=== PATIENT | male | born 1960 | race Caucasian/White ===

== ENCOUNTER 2024-05-21 18:19 | Emergency (ER) | payer OTHER, SELFPAY ==
[2024-05-21 18:35] VITALS: BP 115/64; PULSE 69; RESP 18; TEMP 36.4; O2SAT 99; BMI 32.1
--- NOTE | 2024-05-21 18:51 | XRR_ITS ---
PROCEDURE INFORMATION: Exam: XR Left Foot Exam date and time: 05/21/2024 7:28 PM Age: 63 years old Clinical indication: Ankle and foot; Left; Patient HX: Lt foot/ankle pain post fall TECHNIQUE: Imaging protocol: Radiologic exam of the left foot. Views: 3 or more views. COMPARISON: CR XR ankle LT min 3V* [id number] 05/21/2024 7:28 PM FINDINGS: Bones/joints: No acute fracture or dislocation within the foot. Distal tibia and fibula fractures better assessed on concurrent ankle radiographs, reported separately. Mild degenerative changes through the midfoot. Small plantar calcaneal enthesophyte. Soft tissues: Normal. XR/XR foot LT min 3V* [id number] IMPRESSION: No definite acute osseous findings within the foot. Please see separate ankle radiograph report.
--- NOTE | 2024-05-21 18:51 | XRR_ITS ---
PROCEDURE INFORMATION: Exam: XR Left Ankle Exam date and time: 05/21/2024 7:28 PM Age: 63 years old Clinical indication: Ankle and foot; Left; Patient HX: Lt foot/ankle pain post fall TECHNIQUE: Imaging protocol: Radiologic exam of the left ankle. Views: 3 or more views. COMPARISON: CR (LOW EXM, ) 05/21/2024 7:28 PM FINDINGS: Bones/joints: Mildly displaced, comminuted fracture of the distal fibular metadiaphysis with mild widening of the lateral clear space. Intra-articular extension into the talofibular joint. Nondisplaced fracture of the distal tibial along the posterior malleolus. Soft tissues: Moderate soft tissue swelling along the lateral ankle. XR/XR ankle LT min 3V* [id number] IMPRESSION: 1. Mildly displaced, comminuted fracture of the distal fibula with intra-articular extension. 2. Nondisplaced distal tibia fracture.
[2024-05-21] MEDS: ketorolac 60 mg/2 mL INJ 30 MG IVP (19:51)
--- NOTE | 2024-05-21 20:07 | XRR_ITS ---
PROCEDURE INFORMATION: Exam: XR Left Knee Exam date and time: 05/21/2024 8:37 PM Age: 63 years old Clinical indication: Injury or trauma; Patient HX: Lt knee pain post fall; Lt ankle FX TECHNIQUE: Imaging protocol: Radiologic exam of the left knee. Views: 3 views. COMPARISON: CR (LOW EXM, ) 05/21/2024 7:28 PM FINDINGS: Bones/joints: Normal. Soft tissues: Normal. XR/XR knee LT 3V* [id number] IMPRESSION: No acute findings.
[2024-05-21 21:40] VITALS: BP 127/71; PULSE 64; RESP 16; O2SAT 95
--- NOTE | 2024-05-21 23:11 | W.ED.EXTPRO ---
Documented by User: MARKELL Shaikh 05/21/24 23:21 HPI - Extremity Problem General: Chief complaint: Extremity Injury, Lower Stated complaint: fall Time Seen by Provider: 05/21/24 18:44 Source: patient Mode of arrival: EMS Limitations: no limitations History of Present Illness: Patient is a 63-year-old male brought into the emergency department by ambulance due to left leg injury prior to arrival. He reportedly was walking down steps when he fell down the bottom 3, injuring his left leg in the process. He did noted to be an inversion type injury, and states that it appeared out of place and he subsequently put it back in place prior to presenting to the emergency department. Ambulance also did place a temporary splint on. He is denying pain medications at this time, though is reporting a pain 9/10. No prior injuries or surgeries to the foot. No distal neurovascular deficits reported. There is quite a bit of swelling to the medial and lateral malleoli on examination. MD Complaint: joint swelling and joint pain Onset (ago): minute(s) Pain Consistency: constant Location: left and lower extremity Severity scale (1-10): 9 Radiation: proximal Exacerbating factors: range of motion and palpation Associated symptoms: Deny chest pain, fever(s) or rash Context: other (Fell downstairs) Related Data Previous Rx's Medication Instructions Recorded hydrocodone 7.5 mg-acetaminophen 1 tab PO Q8H PRN pain #15 tabs 05/21/24 325 mg tablet Allergies Allergy/AdvReac Type Severity Reaction Status Date / Time Penicillins Allergy Unknown Verified 05/21/24 18:41 Review of Systems General: Reports: 10 or more systems reviewed and unremarkable except in HPI and below Const: Reports: other (Fall); Denies: fever(s), chills or fatigue Eyes: Denies: change in vision ENMT: Denies: throat pain, ear or mastoid pain or nasal discharge Card: Denies: chest pain, palpitations, swelling of feet/ankles or lightheadedness Resp: Denies: dyspnea, productive cough or wheezing GI: Denies: abdominal pain, nausea, vomiting, diarrhea or constipation : Denies: flank pain, difficulty urinating, dysuria or urinary frequency Musc: Reports: extremity pain (Left lower extremity) and joint pain (Left ankle); Denies: neck pain or back pain Skin/Breast: Denies: rash Neuro: Denies: headache(s), numbness in extremities or weakness in extremities Physical Exam Const: COMMON NORMALS: no acute distress and no limitations GENERAL APPEARANCE: cooperative, comfortable and well developed ORIENTATION/CONSCIOUSNESS: Yes awake HENMT: COMMON NORMALS: normocephalic, atraumatic and hearing grossly normal bilaterally HEAD & SCALP: normocephalic and atraumatic Eye: COMMON NORMALS: Equal, round and reactive pupils present, EOMs intact bilaterally and conjunctivae normal CONJUNCTIVA: Yes conjunctivae normal PUPIL: Yes Equal, round and reactive pupils present Neck/C-Spine: COMMON NORMALS: full ROM, supple and no JVD Resp: COMMON NORMALS: normal respiratory effort, No retractions, No use of accessory muscles and clear to auscultation bilaterally AUSCULTATION: clear to auscultation bilaterally Cardio: COMMON NORMALS: no JVD, regular rate, regular rhythm, No clicks present (Cardio), No murmurs present (Cardio) and No rub (Cardio) RATE: regular rate RHYTHM: regular rhythm Extremity: NARRATIVE EXTREMITY EXAM: There is a moderate amount of swelling to the left lateral malleolus. Also swelling noted to the left medial malleolus. With these areas are tender to palpation, lateral worse than medial. Some mild bruising noted just inferior to the swelling. Distal neurovascular status intact with palpable dorsalis pedis and posterior tibial pulses. Knee is nontender to palpation. Calcaneus nontender to palpation. Skin: COMMON NORMALS: no rashes or lesions noted GENERAL SKIN EXAM: no rashes or lesions noted Course Vital Signs: Vital signs: Vital Signs Temperature 97.5 F L 05/21/24 18:35 Pulse Rate 64 05/21/24 21:40 Respiratory Rate 16 05/21/24 21:40 Blood Pressure 127/71 05/21/24 21:40 Pulse Oximetry 95 05/21/24 21:40 MDM - Extremity (Nontraumatic) Medical Decision Making Patient brought in by ambulance for a left lower extremity injury after he fell down some stairs. Patient noted to EMS that he popped his foot back into place. He did arrive with quite a bit of swelling to the left lower extremity and was pretty diffusely tender to palpation of the left ankle joint. Distal neurovascular status did seem intact as he had palpable dorsalis pedis and posterior tibial pulses and did not endorse any focal sensory deficit distally. Vital stable. X-ray of the left foot was negative, however left ankle x-ray showed a very minimally displaced comminuted fracture of the distal left fibula, also a nondisplaced fracture of the distal left tibia. Subsequently, an x-ray of the knee was obtained, and while patient stated he was not having any pain, it did appear to be a minor fracture of the left proximal fibula. Because of this he will be placed in a long-leg splint with stirrup and refer to podiatry/orthopedics for further evaluation. He is provided pain medications at home and other recovery precautions. In addition return precautions were given prior to discharge. Dr. Coleman made aware of this patient's case and current findings. In addition pictures of the fracture was sent to Dr. Friend who agrees that this can follow-up in the office. Lab Data Radiology Impressions Ankle X-Ray 05/21/24 18:51 IMPRESSION: 1. Mildly displaced, comminuted fracture of the distal fibula with intra-articular extension. 2. Nondisplaced distal tibia fracture. Foot X-Ray 05/21/24 18:51 IMPRESSION: No definite acute osseous findings within the foot. Please see separate ankle radiograph report. Knee X-Ray 05/21/24 20:07 IMPRESSION: No acute findings. All radiology interpretation(s) finalized by discharge Discharge Plan Discharge Patient Disposition: Home Clinical Impression: Closed fracture of proximal end of left fibula Qualifiers: Encounter type: initial encounter Fracture morphology: unspecified fracture morphology Qualified Code(s): S82.832A - Other fracture of upper and lower end of left fibula, initial encounter for closed fracture Closed fracture of distal end of left fibula Qualifiers: Encounter type: initial encounter Fracture morphology: unspecified fracture morphology Qualified Code(s): S82.832A - Other fracture of upper and lower end of left fibula, initial encounter for closed fracture Closed fracture of left distal tibia Qualifiers: Encounter type: initial encounter Fracture morphology: unspecified fracture morphology Qualified Code(s): S82.302A - Unspecified fracture of lower end of left tibia, initial encounter for closed fracture Condition: Stable Prescriptions: New hydrocodone-acetaminophen 7.5-325 mg tablet 1 tab PO Q8H PRN (Reason: pain) Qty: 15 0RF Discharge Orders: Discharge ED (Routine); Ordered 05/21/24 Ordered By: Chencho Funes Discharge Diet: Usual diet Discharge Activity: Use walker/crutches as instructed Patient Instructions: Ankle Fracture (ED), Leg Fracture (ED) Activity Restrictions/Additional Instructions: Nonweightbearing as discussed. Follow-up with orthopedics next week. Crutches provided. Tylenol and ibuprofen, rest and recovery and you may elevate the extremity for relief of swelling. Please return if you develop any loss of feeling in your foot, severe increase in pain, or other concerning symptoms. 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 Documented by User: Benny Ojeda DO 05/22/24 07:10 HPI - Extremity Problem General: Chief complaint: Extremity Injury, Lower Stated complaint: fall Time Seen by Provider: 05/21/24 18:44 Related Data Previous Rx's Medication Instructions Recorded hydrocodone 7.5 mg-acetaminophen 1 tab PO Q8H PRN pain #15 tabs 05/21/24 325 mg tablet Allergies Allergy/AdvReac Type Severity Reaction Status Date / Time Penicillins Allergy Unknown Verified 05/21/24 18:41 Course Vital Signs: Vital signs: Vital Signs Temperature 97.5 F L 05/21/24 18:35 Pulse Rate 64 05/21/24 21:40 Respiratory Rate 16 05/21/24 21:40 Blood Pressure 127/71 05/21/24 21:40 Pulse Oximetry 95 05/21/24 21:40 MDM - Extremity (Nontraumatic) Medical Decision Making Patient brought in by ambulance for a left lower extremity injury after he fell down some stairs. Patient noted to EMS that he popped his foot back into place. He did arrive with quite a bit of swelling to the left lower extremity and was pretty diffusely tender to palpation of the left ankle joint. Distal neurovascular status did seem intact as he had palpable dorsalis pedis and posterior tibial pulses and did not endorse any focal sensory deficit distally. Vital stable. X-ray of the left foot was negative, however left ankle x-ray showed a very minimally displaced comminuted fracture of the distal left fibula, also a nondisplaced fracture of the distal left tibia. Subsequently, an x-ray of the knee was obtained, and while patient stated he was not having any pain, it did appear to be a minor fracture of the left proximal fibula. Because of this he will be placed in a long-leg splint with stirrup and refer to podiatry/orthopedics for further evaluation. He is provided pain medications at home and other recovery precautions. In addition return precautions were given prior to discharge. Dr. Coleman made aware of this patient's case and current findings. In addition pictures of the fracture was sent to Dr. Friend who agrees that this can follow-up in the office. Chart reviewed and patient discussed with midlevel. Agree with assessment and plan. Lab Data Radiology Impressions Ankle X-Ray 05/21/24 18:51 IMPRESSION: 1. Mildly displaced, comminuted fracture of the distal fibula with intra-articular extension. 2. Nondisplaced distal tibia fracture. Foot X-Ray 05/21/24 18:51 IMPRESSION: No definite acute osseous findings within the foot. Please see separate ankle radiograph report. Knee X-Ray 05/21/24 20:07 IMPRESSION: No acute findings. Discharge Plan Discharge Patient Disposition: Home Clinical Impression: Closed fracture of proximal end of left fibula Qualifiers: Encounter type: initial encounter Fracture morphology: unspecified fracture morphology Qualified Code(s): S82.832A - Other fracture of upper and lower end of left fibula, initial encounter for closed fracture Closed fracture of distal end of left fibula Qualifiers: Encounter type: initial encounter Fracture morphology: unspecified fracture morphology Qualified Code(s): S82.832A - Other fracture of upper and lower end of left fibula, initial encounter for closed fracture Closed fracture of left distal tibia Qualifiers: Encounter type: initial encounter Fracture morphology: unspecified fracture morphology Qualified Code(s): S82.302A - Unspecified fracture of lower end of left tibia, initial encounter for closed fracture Condition: Stable Prescriptions: New hydrocodone-acetaminophen 7.5-325 mg tablet 1 tab PO Q8H PRN (Reason: pain) Qty: 15 0RF Discharge Orders: Discharge ED (Routine); Ordered 05/21/24 Ordered By: Chencho Funes Discharge Diet: Usual diet Discharge Activity: Use walker/crutches as instructed Patient Instructions: Ankle Fracture (ED), Leg Fracture (ED) Activity Restrictions/Additional Instructions: Nonweightbearing as discussed. Follow-up with orthopedics next week. Crutches provided. Tylenol and ibuprofen, rest and recovery and you may elevate the extremity for relief of swelling. Please return if you develop any loss of feeling in your foot, severe increase in pain, or other concerning symptoms. 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
--- NOTE | 2024-05-24 08:08 | DCPLANNER ---
messaged podiatry for er f/u
== END 2024-05-21 21:37 | disposition home or self-care (01) ==
PROVIDERS: Emergency Provider Physician Assistant
DX: S82.832A Other fracture of upper and lower end of left fibula, initial encounter for closed fracture (principal); S82.302A Unspecified fracture of lower end of left tibia, initial encounter for closed fracture; W10.8XXA Fall (on) (from) other stairs and steps, initial encounter
CPT/HCPCS: 29505; 73562; 73610; 73630; 96374; 99284; E0114; J1885

== ENCOUNTER → 2024-05-27 09:17 | Outpatient (BNVA) | payer OTHER, SELFPAY | PROVIDERS: Visit Provider Orthopaedic Surgery | DX: S82.832A Other fracture of upper and lower end of left fibula, initial encounter for closed fracture (principal); X58.XXXA Exposure to other specified factors, initial encounter | CPT/HCPCS: 73590 ==

== ENCOUNTER 2024-05-27 10:20 | Outpatient (CLI) | payer OTHER, SELFPAY | END 2024-05-27 10:21 | disposition home or self-care (01) | LOC: SPT 10:23 | PROVIDERS: Visit Provider Podiatrist Foot & Ankle Surgery | DX: Z46.89 Encounter for fitting and adjustment of other specified devices (principal); S82.302D Unspecified fracture of lower end of left tibia, subsequent encounter for closed fracture with routine healing; S82.832D Other fracture of upper and lower end of left fibula, subsequent encounter for closed fracture with routine healing; X58.XXXD Exposure to other specified factors, subsequent encounter | CPT/HCPCS: 97760; L4361 ==

== ENCOUNTER 2024-06-08 10:00 | Day surgery (SDC) | payer OTHER, SELFPAY ==
[2024-06-08] VITALS (12 sets, daily range): BP systolic 94–151; BP diastolic 47–90; PULSE 56–65; RESP 14–18; TEMP 36.1–36.8; O2SAT 93–98; BMI 32.1
--- NOTE | 2024-06-08 11:19 | P.ANESASSM_ITS ---
Pre-Anesthetic Assessment Height/Weight: Height 5 ft 11 in Weight 230 lb Preop Diagnosis: Left distal fibular fracture Operation Date: 06/08/24 12:00 Proposed Procedures p ORIF Ankle ORIF Bimalleolar Fracture(Left) - Chencho Webb DPM Was Beta Malu taken within 24 hours: Yes Was Clonidine taken within 24 hours: N/A Last intake: Intake Last Liquid Date 06/07/24 Last Liquid Time 23:30 Last Solid Date 06/07/24 Last Solid Time 20:30 Social Tobacco and No alcohol Exam alert, oriented x 3 and regular rate & rhythm Current smoker, expiratory wheezing noted. Airway Submandibular: within normal limits Cervical ROM: within normal limits Mallampati: Class III Dentition: false Anesthetic Plan ASA status: 3 Anesthesia: General and Regional (specify below) Other: No prior issues with anesthesia NPO since midnight History of type 2 diabetes on glimepiride and Ozempic, Ozempic taken 05/29 Cardiomyopathy on carvedilol, lisinopril and spironolactone Labs reviewed and acceptable for surgery EKG showing PACS Expiratory wheezing noted on auscultation, plan for breathing treatment preop Plan for general anesthesia with LMA and preop nerve block Medications/Allergies Home Medications Medication Instructions Recorded Confirmed Last Taken Type hydrocodone 7.5 mg-acetaminophen 1 tab PO Q8H PRN pain #15 tabs 05/21/24 06/07/24 Unknown Rx 325 mg tablet CAM boot #1 ea 05/27/24 05/27/24 Unknown Rx carvedilol 25 mg tablet 25 mg PO BID 06/07/24 06/07/24 06/08/24 07:00 History furosemide 40 mg tablet 40 mg PO DAILY 06/07/24 06/07/24 06/07/24 History glimepiride 1 mg tablet 1 mg PO DAILY 06/07/24 06/07/24 06/07/24 History lisinopril 10 mg tablet 10 mg PO DAILY 06/07/24 06/07/24 06/07/24 History rosuvastatin 20 mg tablet 20 mg PO QPM 06/07/24 06/07/24 06/06/24 History semaglutide 0.25 mg or 0.5 mg (2 0.5 mg SUBCUT .WEEK 06/07/24 06/07/24 05/29/24 History mg/3 mL) subcutaneous pen injector (Ozempic) spironolactone 25 mg tablet 25 mg PO DAILY 06/07/24 06/07/24 06/07/24 History hydrocodone 5 mg-acetaminophen 325 1 tab PO Q6H #28 tabs 06/08/24 Unknown Rx mg tablet Allergies Allergy/AdvReac Type Severity Reaction Status Date / Time Penicillins Allergy Unknown Verified 06/07/24 13:19 [facility] Anesthesia Social History Smoking and tobacco/nicotine status: unknown if used tobacco/nicotine Data Anesthesia 06/08/24 11:35 06/08/24 11:35 Cardiac Studies: 2 No Data to Display
--- NOTE | 2024-06-08 11:38 | P.HPUD_ITS ---
Surgery/Procedure H&P Update DATE OF PROCEDURE: June 08, 2024 DATE H&P PERFORMED: 05/27/24 H&P UPDATE INFORMATION: I have reviewed H&P completed within last 30 days, I have examined patient prior to procedure, No changes to prior documentation and H&P is in [facility] EMR on date indicated PREOP DIAGNOSIS: Left distal fibular fracture PLANNED PROCEDURE: Operation Date: 06/08/24 12:00 Proposed Procedures p ORIF Ankle ORIF Bimalleolar Fracture(Left) - Chencho Webb DPM
[2024-06-08 11:42] LABS: Glucose Point of Care 129 mg/dL (70-110)
[2024-06-08 11:47] LABS: Basophils % 0.3 %; Eosinophils # 0.4 10^3/uL (0.0-0.8); Eosinophils % 3.6 %; Hematocrit 41.4 % (37-53); Lymphocytes # 2.7 10^3/uL (0.8-4.8); Lymphocytes % 23.3 %; Mean Corpuscular HGB Conc 33.8 g/dL (30-55); Mean Corpuscular Hemoglobin 31.7 pg (27-33); Mean Corpuscular Volume 93.9 fl (82-101); Mean Platelet Volume 9.5 fL (7.4-10.4); Neutrophils # 7.29 10^3/uL (1.8-7.7); Neutrophils % 63.3 %; Nucleated Red Blood Cells % 0 %; Platelet Count 264 10^3/cmm (157-399); Red Blood Count 4.41 10^6/uL (3.85-5.65); Red Cell Distribution Width 13.1 % (12.1-15.1); White Blood Count 11.52 10^3/uL (3.29-11.43)
--- NOTE | 2024-06-08 11:54 | ECG_ITS ---
[facility] Test Date: 2024-06-08 Pat Name: Jai Sandoval Department: Room: Gender: Male In Room Dining Server: : [id number] Requested By: Kenny Simmons Order Number: [id number] Cy MD: Gurvinder Pina M.D. Measurements Intervals Dorris Rate: 59 P: 0 CT: 0 QRS: 58 QRSD: 102 T: 36 QT: 415 QTc: 414 Interpretive Statements ATRIAL FIBRILLATION WITH SLOW VENTRICULAR RESPONSE No previous ECG available for comparison Electronically Signed On 06-10-2024 18:19:54 CDT by Gurvinder Pina M.D. [id number]
[2024-06-08] MEDS: gabapentin 300 mg Capsule PO (11:55)
[2024-06-08] MEDS: acetaminophen 1,000 MG/100 ML PIGGYBACK 400 MG IV (11:55)
[2024-06-08 12:05] LABS: Anion Gap 15.7 (5-19); Blood Urea Nitrogen 32 mg/dL (8-23); Calcium 9.6 mg/dL (8.5-10.5); Carbon Dioxide 25 mmol/L (22-29); Chloride 103 mmol/L (98-107); Creatinine Clr Calc Pharmacy 92.9458; Glomerular Filtration Rate 75.5 mL/min (90-130); Glucose 128 mg/dL (65-115); Osmolality Calculated 297 mOsm/kg (285-295); Potassium 4.7 mmol/L (3.5-5.1); Sodium 139 mmol/L (136-145)
[2024-06-08] MEDS: sodium chloride 0.9% 1,000 ML 30 ML IV (12:07)
--- NOTE | 2024-06-08 12:35 | ANES.PROC ---
Anesthesia Procedures Procedure/Date: 06/08/24 Nerve Block ^: Nerve Block 1: Main Anesthesia: general anesthesia Time Out Performed: Yes Consent: requested by attending/covering physician and from patient Nerve block location: popliteal Anesthesia monitors applied: pulse oximetry, EKG, BP cuff and oxygen Nerve block position: supine Anesthetic Used: ropivicaine 0.5% Amount of anesthesia used (mL): 25 Ultrasound used to: recognize landmarks Interscalene/Femoral BLK: other needle (pjunk) Injection: neg aspiration of heme Patient Tolerated Procedure: well Complications: none
--- NOTE | 2024-06-08 13:22 | P.BOP_ITS ---
Date of procedure: 06/08/2024 Surgeon name: Gifty ReyesPDian Information Systems Planner(s) name(s): Miguelito Procedure(s) performed: Open reduction internal fixation left distal fibula fracture Description of findings: Distal fibular fracture, Cortes B Estimated blood loss: 5 cc Tourniquet time: 34 minutes Specimen(s) removed: None Post-operative diagnosis: Left distal fibular fracture
--- NOTE | 2024-06-08 13:33 | XR_ITS ---
WS: [id number] Exam: XR tibia fibula LT 2V [id number] Date/Time of Exam: 06/08/2024 1:33 PM Reason For Exam: CELIA PICS AP and lateral intraoperative images of the LEFT ankle are submitted. There is plate and screw fixati on involving a fracture of the lower fibula. Fracture alignment appears satisfactory for healing. Als o noted is a posterior tibial shell fracture as previously described.
--- NOTE | 2024-06-08 22:00 | PM.OP ---
Operative Report Date of procedure: June 08, 2024 Surgeon: Chencho Webb DPM Procedure: Date of procedure: 06/08/2024 Pre-op diagnosis: Left bimalleolar ankle fracture Post-op diagnosis: Same Post-op findings: Anatomically reduced fibula. Syndesmosis intact Procedure done: Open reduction internal fixation left distal fibular fracture CPT 86926 Implants: Anatomic fibular plate from [employer] Specimens removed: None Surgeon: Dr. Chencho Webb DPM Geospatial Developer: Miguelito Estimated blood loss: 5 cc Tourniquet time: 34 minutes Complications: None Patient is a 63-year-old male that has a history of left distal fibular fracture. The patient has had the aforementioned chief complaint for some time. Conservative treatment measures have been attempted and the patient has opted for surgical intervention at this time. A lengthy discussion regarding the procedure, including risks and complications has been had with the patient and is noted in the recent clinic note. Written and verbal consent have been obtained. All patient questions have been answered to the patient?s satisfaction. No written or verbal guarantees have been given or implied. The patient has been NPO since midnight. The history has been reviewed and the history and physical is current. The signed consent was confirmed and placed in the patient chart. Patient imaging has been reviewed and is consistent with the diagnosis. Under mild sedation, the patient was brought into the operating room and placed on the table in the supine position. IV antibiotics were given by the anesthesia team as preoperative surgical prophylaxis. General sedation was then performed by the anesthesiateam. A popliteal block was performed and anesthesia department. A pneumatic tourniquet was then placed about the left thigh. The operative extremity was then prepped and draped in the usual fashion. The extremity was then elevated and exsanguinated before the tourniquet was inflated to 325 mmHg. After inflation, the following procedure was then performed. Attention was directed to the lateral aspect of the left ankle where an 8 cm incision was made overlying the fibula using a #15 blade. Dissection was carried down through subcutaneous the superficial fascia to the level of the fibular periosteum. This was incised and reflected to expose the underlying fibular fracture at the level of the mortise. There was noted to be early signs of healing and malunion at the site of the fracture. Using a combination of rongeur, curette and dental pick the fracture site was fully exposed. After exposure of the site the site was irrigated with sterile saline. The fibula was pulled out to length and anatomically reduced before being temporarily fixated using guidewires. Lobster-claw reduction clamps were used to hold the distal fibula in place. Appropriate position of the fibula was visualized on C-arm imaging before an anatomic fibular plate from [employer] was applied to the lateral aspect of the fibula. The holes of the plate were drilled and filled distally using 2.7 mm locking screws and proximally using a combination of 3.5 mm locking and nonlocking screws. Good positioning of the plate and screws was visualized on C-arm imaging as well as clinically. Syndesmosis was stressed under live fluoroscopy and was noted to be intact. The site was then irrigated with copious amounts sterile saline and attention was directed to closure. Deep tissue was closed with 2-0 Vicryl followed by subcuticular closure with 3-0 Vicryl and skin closure with 3-0 nylon in horizontal mattress fashion. The tourniquet was let down good hyperemic spots was noted to all digits of the left foot. The patient tolerated the procedure and anesthesia well and without complication. The patient was transported from the operating room to the recovery room with vital signs stable and vascular status intact to all digits of the left foot. The patient was given both written and verbal instructions to remain nonweightbearing to the operative extremity, to keep dressings/splint clean, dry and intact and to take pain medication as directed. The patient will follow-up in the outpatient setting at their scheduled appointment. The patient was discharged with my personal number and was instructed to call if any questions or issues should arise. They were discharged home once anesthesia criteria was met.
== END 2024-06-08 15:35 | disposition home or self-care (01) ==
PROVIDERS: Student in an Organized Health Care Education/Training Program; Visit Provider Podiatrist Foot & Ankle Surgery
DX: S82.842A Displaced bimalleolar fracture of left lower leg, initial encounter for closed fracture (principal); X58.XXXA Exposure to other specified factors, initial encounter; F17.200 Nicotine dependence, unspecified, uncomplicated; E11.9 Type 2 diabetes mellitus without complications; I42.9 Cardiomyopathy, unspecified
CPT/HCPCS: 27792; 36415; 36416; 73590; 76000; 80048; 82962; 85025; 93005; C1713 ×2; J0131; J1100; J2405; J2704; J3010; J3490; J7030

== ENCOUNTER → 2024-06-23 13:42 | Outpatient (BNVA) | payer OTHER, SELFPAY | PROVIDERS: Visit Provider Podiatrist Foot & Ankle Surgery | DX: S82.302D Unspecified fracture of lower end of left tibia, subsequent encounter for closed fracture with routine healing; E11.9 Type 2 diabetes mellitus without complications; X58.XXXD Exposure to other specified factors, subsequent encounter | CPT/HCPCS: 73610 ==

== ENCOUNTER → 2024-07-14 11:40 | Outpatient (BNVA) | payer OTHER, SELFPAY | PROVIDERS: Visit Provider Podiatrist Foot & Ankle Surgery | DX: Z98.890 Other specified postprocedural states; S82.302D Unspecified fracture of lower end of left tibia, subsequent encounter for closed fracture with routine healing; X58.XXXD Exposure to other specified factors, subsequent encounter | CPT/HCPCS: 73610 ==

== ENCOUNTER → 2024-07-28 12:56 | Outpatient (BNVA) | payer OTHER, SELFPAY | PROVIDERS: Visit Provider Podiatrist Foot & Ankle Surgery | DX: Z98.890 Other specified postprocedural states; S82.302D Unspecified fracture of lower end of left tibia, subsequent encounter for closed fracture with routine healing; X58.XXXD Exposure to other specified factors, subsequent encounter | CPT/HCPCS: 73610 ==

== ENCOUNTER → 2024-08-18 13:11 | Outpatient (BNVA) | payer OTHER, SELFPAY | PROVIDERS: Visit Provider Podiatrist Foot & Ankle Surgery | DX: Z98.890 Other specified postprocedural states; S82.302D Unspecified fracture of lower end of left tibia, subsequent encounter for closed fracture with routine healing; X58.XXXD Exposure to other specified factors, subsequent encounter | CPT/HCPCS: 73610 ==

== ENCOUNTER 2024-08-18 13:57 | Outpatient (CLI) | payer OTHER, SELFPAY | END 2024-08-18 13:58 | disposition home or self-care (01) | LOC: SPT 13:58 | PROVIDERS: Visit Provider Podiatrist Foot & Ankle Surgery | DX: Z47.89 Encounter for other orthopedic aftercare (principal); S82.301D Unspecified fracture of lower end of right tibia, subsequent encounter for closed fracture with routine healing; X58.XXXD Exposure to other specified factors, subsequent encounter | CPT/HCPCS: L1902 ==

== ENCOUNTER 2025-08-22 13:23 | Emergency (ER) | payer OTHER, SELFPAY ==
[2025-08-22 13:25] VITALS: BP 130/59; PULSE 70; RESP 16; TEMP 36.6; O2SAT 100
--- NOTE | 2025-08-22 13:34 | W.ED.EXTPRO ---
HPI - Extremity Problem General: Chief complaint: General Medical Stated complaint: pos blood clot right leg sent by Dr Landa Seen by Provider: 08/22/25 13:33 Source: patient Mode of arrival: ambulatory Limitations: no limitations History of Present Illness: Patient is a 64-year-old male who was sent here from his primary care provider for rule out DVT to his right lower leg. Patient states over the past 2 days he has noticed some swelling to the lower aspect of his right leg as well as some redness and discomfort. He has not had any injury or trauma. He is not complaining of any calf pain. Patient states he is undergoing chemotherapy and states his chemotherapy medication does have a side effect of blood clots. He is not currently on anticoagulation. No previous history of DVT/PE. He is not complaining of shortness of breath, difficulty breathing. MD Complaint: extremity pain and extremity swelling Onset (ago): day(s) Pain Consistency: constant Location: right and lower extremity Radiation: none Relieving factors: nothing Exacerbating factors: nothing Associated symptoms: Reports no associated symptoms; Deny chest pain or fever(s) Context: other (hx malignancy-states his chemo meds have a side effect of blood clots ) Related Data Home Medications ?Medication ?Instructions ?Recorded ?Confirmed carvedilol 25 mg tablet 25 mg PO BID 06/07/24 06/09/25 furosemide 40 mg tablet 40 mg PO DAILY 06/07/24 06/09/25 glimepiride 1 mg tablet 1 mg PO DAILY 06/07/24 06/09/25 lisinopril 10 mg tablet 10 mg PO DAILY 06/07/24 06/09/25 rosuvastatin 20 mg tablet 20 mg PO QPM 06/07/24 06/09/25 semaglutide 0.25 mg or 0.5 mg (2 0.5 mg SUBCUT .WEEK 06/07/24 06/09/25 mg/3 mL) subcutaneous pen injector (Ozempic) spironolactone 25 mg tablet 25 mg PO DAILY 06/07/24 06/09/25 Previous Rx's ?Medication ?Instructions ?Recorded hydrocodone 7.5 mg-acetaminophen 1 tab PO Q8H PRN pain #15 tabs 05/21/24 325 mg tablet CAM boot #1 ea 05/27/24 hydrocodone 5 mg-acetaminophen 325 1 tab PO Q6H #28 tabs 06/08/24 mg tablet sulfamethoxazole 800 1 tab PO BID #14 tabs 06/23/24 mg-trimethoprim 160 mg tablet (Bactrim DS) ASO #1 ea 08/18/24 cephalexin 500 mg capsule 500 mg PO Q6H 7 days #28 caps 08/22/25 Allergies Allergy/AdvReac Type Severity Reaction Status Date / Time Penicillins Allergy Unknown Verified 06/09/25 13:53 Review of Systems Const: Denies: fever(s) Card: Denies: chest pain, lightheadedness, dyspnea on exertion, leg pain with exertion or acrocyanosis Resp: Denies: dyspnea or hemoptysis Musc: Reports: extremity pain and extremity swelling; Denies: joint pain, joint swelling, joint redness, joint warmth, joint stiffness or muscle cramps Skin/Breast: Reports: erythema (R LE) Neuro: Reports: sensory changes (chronic peripheral neuropathy-at baseline); Denies: headache(s), numbness in extremities or weakness in extremities PFSH ED PFSH: Social History Smoking and tobacco/nicotine status: unknown if used tobacco/nicotine Physical Exam Const: COMMON NORMALS: no acute distress, patient oriented x3, no limitations, alert and well nourished GENERAL APPEARANCE: cooperative Resp: COMMON NORMALS: normal respiratory effort and clear to auscultation bilaterally AUSCULTATION: clear to auscultation bilaterally Cardio: COMMON NORMALS: regular rate and regular rhythm RATE: regular rate RHYTHM: regular rhythm Extremity: COMMON NORMALS: full ROM, capillary refill normal, no joint enlargement and no calf tenderness GENERAL: Yes normal exam except as noted RIGHT LOWER EXTREMITY: Yes lower leg OTHER: mild edema of R lower leg when compared to left; no calf pain/negative Fallon's; no palpable cords; he has some mild erythema/warmth affecting lower medial aspect-this is where he is tender EXTREMITY IMAGE (FRONT):  1. mild erythema/warmth Neuro: COMMON NORMALS: patient oriented x3 SENSORIUM/ORIENTATION: Yes alert Course Vital Signs: Vital signs: Vital Signs Temperature 97.8 F 08/22/25 13:25 Pulse Rate 70 08/22/25 13:25 Respiratory Rate 18 08/22/25 13:55 Blood Pressure 130/59 08/22/25 13:25 Pulse Oximetry 98 08/22/25 13:55 Oxygen Delivery Me thod Room Air 08/22/25 13:55 MDM - Extremity (Nontraumatic) Medical Decision Making DDx includes DVT, cellulitis, peripheral vascular disease, dependent rubor, superficial thrombophlebitis, gout, among others. US negative for DVT. Vitals stable. I do not feel labs will be overly helpful or ultimately currency exchange specialist. Will cover for cellulitis given the erythema, warmth, tenderness. Recommend follow-up with primary care. Return to ED precautions discussed. Differential Diagnosis Likely superficial thrombophlebitis and deep vein thrombosis of lower extremity Medical Records I reviewed the patient's medical records. XR interpretation done by ED provider, pending radiology final review (per [facility]ambo tech-negative for DVT) Discharge Plan Discharge Patient Disposition: Home Clinical Impression: Cellulitis of right anterior lower leg Condition: Stable Prescriptions: New cephalexin 500 mg capsule 500 mg PO Q6H 7 Days Qty: 28 0RF No Action (DME) CAM boot See Rx Instructions .Route .MEDSUPPLY Qty: 1 0RF Rx Instructions: As directed sulfamethoxazole-trimethoprim [Bactrim DS] 800-160 mg tablet 1 tab PO BID Qty: 14 0RF (DME) ASO See Rx Instructions .Route .MEDSUPPLY Qty: 1 0RF Rx Instructions: As directed hydrocodone-acetaminophen 7.5-325 mg tablet 1 tab PO Q8H PRN (Reason: pain) Qty: 15 0RF furosemide 40 mg tablet 40 mg PO DAILY carvedilol 25 mg tablet 25 mg PO BID spironolactone 25 mg tablet 25 mg PO DAILY glimepiride 1 mg tablet 1 mg PO DAILY lisinopril 10 mg tablet 10 mg PO DAILY rosuvastatin 20 mg tablet 20 mg PO QPM Ozempic 0.25 mg or 0.5 mg (2 mg/3 mL) pen injector 0.5 mg SUBCUT .WEEK hydrocodone-acetaminophen 5-325 mg tablet 1 tab PO Q6H Qty: 28 0RF Discharge Orders: Discharge ED (Routine); Ordered 08/22/25 Ordered By: Vero Tang Referrals: Keyana Jonas NP [Primary Care Provider, Family Practice] Patient Instructions: Cellulitis (ED), Patient Portal & Suzy Instructions Activity Restrictions/Additional Instructions: As we discussed, please fill your antibiotics and start them. Monitor for worsening pain, redness, swelling to your leg. Please return to the emergency department if this occurs or follow-up with primary care. Ultrasound to day was negative for DVT (blood clot). Print Language: Chadian Coding Level of Care Code ED Mortising Machine Operator for Jorden Mckoy
--- NOTE | 2025-08-22 13:40 | USCV_ITS ---
Jai Sandoval Age: 64 Gender: M : 1960 Exam Date: 08/22/2025 14:22 Ordering Phys: Vero Tang Technologist: TYLER [place]am Location[place] [facility] [place]: RLE pain HISTORY: Lower extremity pain. PROCEDURES: Venous duplex imaging was performed in only the right lower extremity. The following venous structures were evaluated: common femoral vein, profunda vein, proximal portion of the greater saphenous vein, superficial femoral vein, and the popliteal vein. In addition, the posterior tibial and peroneal trunk were evaluated. Serial compression, augmentation maneuvers, and spectral Doppler flow evaluation were performed. FINDINGS: No evidence of DVT seen in any vessel visualized at this time. CONCLUSIONS No evidence of right lower extremity DVT. Farhat Garcia MD (Electronically Signed) Final Date: 22 August 2025 15:33 S
[2025-08-22 13:55] VITALS: RESP 18; O2SAT 98
== END 2025-08-22 14:46 | disposition home or self-care (01) ==
PROVIDERS: Emergency Provider Physician Assistant; PCP Nurse Practitioner Family
DX: L03.115 Cellulitis of right lower limb (principal)
CPT/HCPCS: 93971; 99284